=== PATIENT | male | born 1950 | race Caucasian/White ===

== ENCOUNTER 2023-12-30 13:07 | Inpatient (IN) | payer MEDICARE ==
[~2023-12-30] VITALS: Ht 177.8 cm; Wt 66.7 kg
[2023-12-30] MEDS: IV NS 0.9% 500 ML BAG IV ONE (13:38)
[2023-12-30 13:51] LABS: BASOPHILS % (AUTO) 0.5 % (0.0-2.0); EOSINOPHILS % (AUTO) 0.7 % (0.0-6.0); HEMATOCRIT 39 % (39-51); LYMPHOCYTES # (AUTO) 1.2 K/uL (0.8-4.8); LYMPHOCYTES % (AUTO) 17.3 % (20.0-44.0); MEAN CORPUSCULAR HEMOGLOBIN 30 PG (26.0-33.0); MEAN CORPUSCULAR HGB CONC 34 g/dl (31.0-36.0); MEAN CORPUSCULAR VOLUME 89 fL (80-96); MONOCYTES # (AUTO) 0.9 K/uL (0.1-1.30); NEUTROPHILS # (AUTO) 4.9 K/uL (1.8-8.9); NEUTROPHILS % (AUTO) 68.5 % (43.0-81.0); PLATELET COUNT (AUTO) 260 K/uL (150-450); RED BLOOD CELL COUNT(AUTO) 4.32 MIL/uL (4.5-6.0); RED CELL DISTRIBUTION WIDTH 16.5 % (11.5-15.0); WHITE BLOOD COUNT (AUTO) 7.2 K/uL (4.3-11.0)
[2023-12-30 13:57] LABS: APPEARANCE,URINE Clear (CLEAR); BILIRUBIN,URINE Negative (NEGATIVE); BLOOD, URINE Negative Ery/uL (NEGATIVE); COLOR,URINE YELLOW (YELLOW); KETONES,URINE Negative (NEGATIVE); LEUKOCYTE ESTERASE ,URINE Negative (NEGATIVE); NITRITE, URINE Negative (NEGATIVE); PROTEIN,URINE Negative (NEGATIVE); UGLUCOSE Negative (NEGATIVE); UROBILINOGEN,URINE 0.2 EU/dL (0.2)
[2023-12-30 14:00] LABS: INR 0.92 (0.91-1.10); PARTIAL THROMBOPLASTIN TIME 21.5 SEC (24.3-34.3); PROTHROMBIN TIME 9.5 SECS (9.2-11.1)
[2023-12-30 14:01] LABS: CALCIUM, SERUM 9.4 mg/dL (8.5-10.1); CARBON DIOXIDE 33 mmol/L (21-32); CHLORIDE 104 mmol/L (98-107); CREATININE 1.1 mg/dL (0.6-1.3); GLUCOSE 91 mg/dL (74-106); POTASSIUM 4.3 mmol/L (3.5-5.1); SODIUM SERUM 139 mmol/L (136-145); UREA NITROGEN, BLOOD 26 mg/dL (7-18)
[2023-12-30 14:04] LABS: ALANINE AMINOTRANSFERASE 20 U/L (12-78); ALBUMIN 3.9 g/dL (3.4-5.0); ALCOHOL, BLOOD < 3 mg/dL (0-10); ALKALINE PHOSPHATASE 110 U/L (46-116); ASPARTATE AMINOTRANSFERASE 18 U/L (15-37); BILIRUBIN,DIRECT 0.1 mg/dL (0.0-0.2); BILIRUBIN,TOTAL 0.4 mg/dL (0.2-1.0); TOTAL PROTEIN, SERUM 7.3 g/dL (6.4-8.2)
[2023-12-30 14:05] LABS: SALICYLATE 1.3 mg/dL (2.8-20.0)
[2023-12-30 14:18] LABS: AMPHETAMINE, URINE NEGATIVE (NEGATIVE); BARBITURATE, URINE NEGATIVE (NEGATIVE); BENZODIAZEPINE, URINE NEGATIVE (NEGATIVE); CANNABINOID, URINE NEGATIVE (NEGATIVE); COCCAINE, URINE NEGATIVE (NEGATIVE); OPIATE, URINE NEGATIVE (NEGATIVE); PHENCYCLIDINE SCREEN,URINE NEGATIVE (NEGATIVE)
[2023-12-30 14:36] LABS: SERUM AMMONIA 3 umol/L (11-32)
[2023-12-30 14:49] LABS: THYROID STIMULATING HORMONE 1.566 uIU/mL (0.358-3.74)
[2023-12-30] MEDS ORDERED: OLAN5TAB3 PO (15:33)
[2023-12-30 19:15] VITALS: BP 111/60; TEMP 97.9; O2SAT 98
[2023-12-30] MEDS ORDERED: MAGNESIUM HYDROXIDE 30 ML UDC PO PRN (20:00)
[2023-12-30] MEDS ORDERED: LORAZEPAM 1 MG TABLET PO PRN (20:00)
[2023-12-30] MEDS ORDERED: MAG HYDROX/AL HYDROX/SIMETH 30 ML UDC PO PRN (20:00)
[2023-12-30] MEDS ORDERED: ZOLPIDEM TARTRATE 5 MG TABLET PO PRN (20:00)
[2023-12-30] MEDS: BLOOD SUGAR DIAGNOSTIC 1 EACH STRIP IN ONE (20:19)
[2023-12-31 08:00] VITALS: BP 109/62; TEMP 98; O2SAT 99
[2023-12-31 09:02] LABS: ALBUMIN 3.1 g/dL (3.4-5.0); BILIRUBIN,TOTAL 0.5 mg/dL (0.2-1.0); CALCIUM, SERUM 8.5 mg/dL (8.5-10.1); CREATININE 0.8 mg/dL (0.6-1.3); POTASSIUM 3.9 mmol/L (3.5-5.1); TOTAL PROTEIN, SERUM 6.6 g/dL (6.4-8.2)
[2023-12-31 09:04] LABS: CHOLESTEROL 207 mg/dL (<200); HDL CHOLESTEROL 49 mg/dL (40-60); LDL 138 mg/dL (0-99); TRIGLYCERIDES 91 mg/dL (30-150)
[2023-12-31] MEDS: OLANZAPINE 2.5 MG TABLET PO SCH (10:59)
[2023-12-31 16:00] VITALS: BP 116/66; TEMP 97.8; O2SAT 98
[2023-12-31 21:23] LABS: CREATININE 0.9 mg/dL (0.6-1.3)
[2023-12-31 22:14] VITALS: BP 111/61; TEMP 97.7; O2SAT 95
[2024-01-01 08:00] VITALS: BP 103/72; TEMP 98; O2SAT 99
[2024-01-01 16:00] VITALS: BP 98/78; TEMP 97.7; O2SAT 96
[2024-01-01 20:00] VITALS: BP 107/61; TEMP 98.4; O2SAT 98
[2024-01-01] MEDS: OLANZAPINE 5 MG TABLET PO SCH (21:01)
[2024-01-02 08:00] VITALS: BP 109/70; TEMP 98.1; O2SAT 99
[2024-01-02 16:00] VITALS: BP 122/71; TEMP 98.4; O2SAT 95
[2024-01-02 20:00] VITALS: BP 129/75; TEMP 98.3; O2SAT 95
[2024-01-03 08:00] VITALS: BP 122/77; TEMP 98; O2SAT 98
[2024-01-03 16:00] VITALS: BP 114/64; TEMP 98.1; O2SAT 98
[2024-01-03] MEDS: OLANZAPINE 2.5 MG TABLET PO SCH (16:40)
[2024-01-03 21:01] VITALS: BP 141/80; TEMP 98.4; O2SAT 98
[2024-01-04 08:00] VITALS: BP 113/69; TEMP 98; O2SAT 95
[2024-01-04 16:00] VITALS: BP 108/72; TEMP 97.6; O2SAT 95
[2024-01-04 22:18] VITALS: BP 117/72; TEMP 98.1; O2SAT 97
[2024-01-05 08:00] VITALS: BP 117/76; TEMP 97.9; O2SAT 99
[2024-01-05] MEDS: DIVALPROEX SODIUM 125 MG TABLET.DR PO SCH (13:00)
[2024-01-05 16:00] VITALS: BP 109/65; TEMP 98; O2SAT 97
[2024-01-05 20:00] VITALS: BP 132/69; TEMP 97.9; O2SAT 99
[2024-01-06 08:00] VITALS: BP 118/70; TEMP 98; O2SAT 100
[2024-01-06 16:00] VITALS: BP 119/71; TEMP 97.8; O2SAT 95
[2024-01-06 20:32] VITALS: BP 102/68; TEMP 97.9; O2SAT 98
[2024-01-06] MEDS: DIVALPROEX SODIUM 125 MG TABLET.DR PO SCH (21:00)
[2024-01-06] MEDS: ATORVASTATIN 10 MG TABLET PO SCH (21:07)
[2024-01-07 08:00] VITALS: BP 118/79; TEMP 98; O2SAT 99
[2024-01-07] MEDS: DIVALPROEX SODIUM 125 MG TABLET.DR PO SCH (12:06)
[2024-01-07 16:00] VITALS: BP 117/65; TEMP 98; O2SAT 100
[2024-01-08 08:00] VITALS: BP 135/88; TEMP 97.9; O2SAT 100
[2024-01-08 16:00] VITALS: BP 104/71; TEMP 98.6; O2SAT 98
[2024-01-08 20:00] VITALS: BP 125/73; TEMP 98.3; O2SAT 98
[2024-01-08] MEDS: OLANZAPINE 2.5 MG TABLET PO SCH (21:01)
[2024-01-09 08:00] VITALS: BP 98/61; TEMP 97.5; O2SAT 98
[2024-01-09 16:00] VITALS: BP 100/62; TEMP 98.4; O2SAT 100
[2024-01-09 20:00] VITALS: BP 144/95; TEMP 98.2; O2SAT 95
[2024-01-10 07:40] LABS: ALANINE AMINOTRANSFERASE 20 U/L (12-78); ALBUMIN 3.3 g/dL (3.4-5.0); ALKALINE PHOSPHATASE 105 U/L (46-116); ASPARTATE AMINOTRANSFERASE 20 U/L (15-37); BILIRUBIN,TOTAL 0.5 mg/dL (0.2-1.0); CALCIUM, SERUM 8.8 mg/dL (8.5-10.1); CARBON DIOXIDE 32 mmol/L (21-32); CHLORIDE 107 mmol/L (98-107); CREATININE 0.9 mg/dL (0.6-1.3); GLUCOSE 79 mg/dL (74-106); POTASSIUM 4.2 mmol/L (3.5-5.1); SODIUM SERUM 143 mmol/L (136-145); TOTAL PROTEIN, SERUM 7.1 g/dL (6.4-8.2); UREA NITROGEN, BLOOD 23 mg/dL (7-18)
[2024-01-10 08:00] VITALS: BP 106/84; TEMP 98.6; O2SAT 96
[2024-01-10 08:18] LABS: VALPROIC ACID 13 ug/mL (50-100)
[2024-01-10 16:00] VITALS: BP 115/64; TEMP 98.2; O2SAT 98
[2024-01-10 20:00] VITALS: BP 110/72; TEMP 98.5; O2SAT 96
[2024-01-11 08:00] VITALS: BP 111/61; TEMP 97.8; O2SAT 96
[2024-01-11 16:00] VITALS: BP 116/80; TEMP 98.1; O2SAT 100
[2024-01-11] MEDS ORDERED: OLANZAPINE 5 MG TABLET ONE (21:23)
[2024-01-11] MEDS: OLANZAPINE 5 MG TABLET PO SCH (21:53)
[2024-01-12 08:00] VITALS: BP 106/60; TEMP 98.1; O2SAT 97
[2024-01-12] MEDS: OLANZAPINE 5 MG TABLET PO SCH ×2 (09:13→21:31)
[2024-01-12 16:00] VITALS: BP 104/58; TEMP 98.1; O2SAT 99
[2024-01-12 20:55] VITALS: BP 126/77; TEMP 98.1; O2SAT 97
[2024-01-13 08:00] VITALS: BP 139/80; TEMP 98.1; O2SAT 96
[2024-01-13] MEDS: ACETAMINOPHEN 325 MG TABLET PO PRN (14:39)
[2024-01-13 16:00] VITALS: BP 119/77; TEMP 98.6; O2SAT 98
[2024-01-13 21:22] VITALS: BP 111/63; TEMP 98; O2SAT 97
[2024-01-14 08:00] VITALS: BP 100/61; TEMP 97.9; O2SAT 100
[2024-01-14 16:00] VITALS: BP 107/60; TEMP 97.9; O2SAT 98
[2024-01-14 20:56] VITALS: BP 107/62; TEMP 97.9; O2SAT 99
[2024-01-15 08:00] VITALS: BP 100/70; TEMP 97.9; O2SAT 100
[2024-01-15 16:43] VITALS: BP 130/98; TEMP 97.8; O2SAT 98
[2024-01-15 20:00] VITALS: BP 130/74; TEMP 97.9; O2SAT 96
[2024-01-16 08:00] VITALS: BP 100/60; TEMP 98; O2SAT 99
== END 2024-01-16 14:20 | DRG 885 ==
LOC: ER 13:11 → GPS 18:24
PROVIDERS: ADMIT Psychiatry & Neurology Psychiatry; ATTEND Nurse Practitioner Acute Care
DX: F25.0 Schizoaffective disorder, bipolar type (principal); F20.0 Paranoid schizophrenia; Z20.822 Contact with and (suspected) exposure to COVID-19; E78.5 Hyperlipidemia, unspecified; Z88.2 Allergy status to sulfonamides; Z73.6 Limitation of activities due to disability; F03.90 Unspecified dementia, unspecified severity, without behavioral disturbance, psychotic disturbance, mood disturbance, and anxiety
CPT/HCPCS: 36415; 70450-TC; 71045-TC; 73650-TC; 80048-TC; 80053-TC; 80061-TC; 80076-TC; 80164-TC; 82140-TC; 82565-TC; 82962-TC; 84443-TC; 84484-TC; 85025-TC; 85730-TC; 87081-TC; 97112-TC; 97116-TC; 97530-TC; G0480; J7040